=== PATIENT | female | born 1995 | race Caucasian/White ===

== ENCOUNTER 2017-08-16 00:32 | Emergency (ER) | payer OTHER ==
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
[2017-08-16 05:32] VITALS: BP 139/82
== END 2017-08-16 06:16 | disposition home or self-care (01) ==
LOC: ER 00:32
DX: T76.21XA Adult sexual abuse, suspected, initial encounter (principal); R10.9 Unspecified abdominal pain; Y92.009 Unspecified place in unspecified non-institutional (private) residence as the place of occurrence of the external cause
CPT/HCPCS: 99284